=== PATIENT | female | born 1995 | race Caucasian/White ===

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

== ENCOUNTER 2017-05-02 13:02 | Emergency (ER) | END 2017-05-02 17:21 | disposition home or self-care (01) ==

== ENCOUNTER 2017-06-26 16:44 | Emergency (ER) | END 2017-06-26 21:23 | disposition home or self-care (01) ==

== ENCOUNTER 2017-09-12 15:52 | Emergency (ER) | END 2017-09-12 19:48 | disposition home or self-care (01) ==

== ENCOUNTER 2017-11-14 12:45 | Emergency (ER) | END 2017-11-14 15:34 | disposition home or self-care (01) ==

== ENCOUNTER 2018-03-15 17:08 | Emergency (ER) | END 2018-03-15 18:34 | disposition home or self-care (01) ==

== ENCOUNTER 2018-09-09 16:27 | Emergency (ER) | payer OTHER ==
[~2018-09-09] VITALS: Ht 157.5 cm; Wt 76.6 kg
[~2018-09-09 16:27] MED LIST changes: +ACET500C5 PO; +AMOX500C2 PO; -AZIT1PAC12; +BENZ200C68 PO; +CYCL10TA7 PO; +FAMO-96 PO; +FLUT9.9S NASAL; +GUAI-173 PO; +IBUP-1542 PO; +IBUP800T48 PO; +LOPE2CAP PO; +LORA-441 PO; +NAPR-985 PO; +ONDA4TAB14 PO; +ONDA4TAB8 PO; +RANI150T35 PO
[2018-09-09 16:30] VITALS: BP 131/79; PULSE 106; RESP 18; Ht 157.5 cm; Wt 76.6 kg
[2018-09-09] MEDS ORDERED: IBUP-1542 PO (16:52)
[2018-09-09] MEDS ORDERED: D-ME473S2 PO (16:52)
--- NOTE | 2018-09-09 17:06 | ERD ---
ER Documentation Chief Complaint Chief Complaint cough , chest congestion , ear pain x 4 days HPI 22-year-old female presents with cough and congestion for last 4 days. She may have had tactile fevers but no measured temperature. She has body aches as well. She denies vomiting, abdominal pain, diarrhea, urinary complaints. ROS All systems reviewed and are negative except as per history of present illness. Medications Home Meds Active Scripts Dextromethorphan Hb-Promethazine Hcl* (Promethazine DM* Syrup) 473 Ml Syrup, 5 ML PO Q6 PRN for COUGH for 5 Days, ML Prov:RACHEL SAMANIEGO MD 09/09/18 Ibuprofen* (Motrin*) 600 Mg Tab, 600 MG PO Q6, #20 TAB Prov:RACHEL SAMANIEGO MD 09/09/18 Famotidine* (Pepcid*) 20 Mg Tablet, 20 MG PO BID, #20 TAB Prov:SHIRLEY PALMA PA-C 05/21/18 Acetaminophen* (Tylophen*) 500 Mg Capsule, 1 CAP PO Q6H PRN for PAIN AND OR ELEVATED TEMP, #20 CAP Prov:SHIRLEY PALMA PA-C 05/21/18 Ondansetron (Ondansetron Odt) 4 Mg Tab.rapdis, 4 MG PO Q6H PRN for NAUSEA AND/OR VOMITING, #10 TAB Prov:SHIRLEY PALMA PA-C 05/21/18 Ibuprofen* (Motrin*) 600 Mg Tab, 600 MG PO Q6, #30 TAB Prov:DANNY SHARPE PA-C 03/15/18 Benzonatate* (Benzonatate*) 200 Mg Capsule, 200 MG PO TID PRN for COUGH, #15 CAP Prov:DANNY SHARPE PA-C 03/15/18 Loratadine* (Claritin*) 10 Mg Capsule, 10 MG PO DAILY, #20 CAP Prov:DANNY SHARPE PA-C 03/15/18 Fluticasone Propionate (Flonase Allergy Relief) 9.9 Ml [place].susp, 1 SPRAY NASAL BID, #1 BOTTLE TO EACH NOSTRIL Prov:DANNY SHARPE PA-C 03/15/18 Amoxicillin* (Amoxicillin*) 500 Mg Cap, 500 MG PO TID for 10 Days, CAP Prov:DANNY SHARPE PA-C 03/15/18 Cyclobenzaprine Hcl* (Cyclobenzaprine Hcl*) 10 Mg Tablet, 10 MG PO QHS, #7 TAB Prov:CANDY AUSTIN PA-C 11/14/17 Naproxen* (Naprosyn*) 500 Mg Tablet, 500 MG PO BID PRN for PAIN AND/OR INFLAMMATION, #30 TAB Prov:CANDY AUSTIN PA-C 11/14/17 Lorazepam* (Ativan*) 0.5 Mg Tablet, 0.5 MG PO BID PRN for ANXIETY, #7 TAB Prov:RACHEL SAMANIEGO MD 09/12/17 Ibuprofen* (Motrin*) 600 Mg Tab, 600 MG PO Q6, #30 TAB Prov:ABEBA GARLAND 06/26/17 Guaifenesin* (Tussin*) 100 Mg/5 Ml Syrup, 200 MG PO Q6 PRN for COUGH for 3 Days, ML Prov:ABEBA GARLAND 06/26/17 Cephalexin* (Keflex*) 500 Mg Capsule, 500 MG PO BID for 7 Days, CAP Prov:ABEBA GARLAND 06/26/17 Loperamide Hcl* (Imodium*) 2 Mg Capsule, 2 MG PO .AFTER EA LOOSE BM PRN for DIARRHEA, #10 TAB Prov:ABEBA GARLAND 06/26/17 Ondansetron Hcl* (Zofran*) 4 Mg Tablet, 4 MG PO Q6H for NAUSEA AND/OR VOMITING, #30 TAB Prov:ABEBA GARLAND 06/26/17 Ranitidine Hcl* (Zantac*) 150 Mg Tablet, 150 MG PO BID PRN for EPIGASTRIC PAIN, #30 TAB Prov:ADRIANA MILLAN PA-C 05/02/17 Cephalexin* (Keflex*) 500 Mg Capsule, 500 MG PO TID for 7 Days, CAP Prov:ADRIANA MILLAN PA-C 05/02/17 Ibuprofen* (Motrin*) 800 Mg Tab, 800 MG PO Q8 PRN for PAIN AND OR ELEVATED TEMP, #30 TAB Prov:DARON CASTREJON 12/08/16 Cephalexin* (Keflex*) 500 Mg Capsule, 500 MG PO TID for 7 Days, CAP Prov:PASILADARON CLAROS F 12/08/16 Phenazopyridine Hcl* (Pyridium*) 200 Mg Tab, 200 MG PO TID PRN for DYSURIA, #6 TAB Prov:RACHEL SAMANIEGO MD 08/31/15 Cephalexin* (Keflex*) 500 Mg Capsule, 500 MG PO QID for 5 Days, CAP Prov:RACHEL SAMANIEGO MD 08/31/15 Ondansetron Hcl* (Zofran* ODT) 4 mg -ODT Tab.disper, 4 MG PO Q6 PRN for NAUSEA AND/OR VOMITING, #10 TAB Prov:KAILEE HOFF DO 06/26/15 Hydrocodone Bit-Acetaminophen* ([place]uth*) 10-325 Mg Tablet, 1 TAB PO Q6 PRN for PAIN, #20 TAB Prov:GREENJEREMIAHKAILEE DO 06/26/15 Ondansetron Hcl* (Zofran* ODT) 4 mg -ODT Tab.disper, 4 MG PO Q8 PRN for NAUSEA AND OR VOMITING, #10 TAB Prov:YINA MORENO PA-C 05/12/15 Ondansetron Hcl* (Zofran* ODT) 4 mg -ODT Tab.disper, 4 MG PO Q8 PRN for NAUSEA AND/OR VOMITING, #30 TAB Prov:JASVIR JEFFERSON NP 02/01/15 Hydrocodone Bit-Acetaminophen* (Ruth*) 5-325 Mg Tab, 1 TAB PO Q6 PRN for SEVERE PAIN LEVEL 7-10, #10 TAB Prov:JASVIR JEFFERSON NP 02/01/15 Magaldrate/Simethicone* (Mag-Al Plus Suspension*) 30 Ml Oral.susp, 30 ML PO Q6H PRN for GASTROINTESTINAL UPSET, #1 BOTTLE Prov:JASVIR JEFFERSON NP 02/01/15 Nitrofurantoin Monohyd Macrocr* (Macrobid*) 100 Mg Capsr, 100 MG PO BID for 7 Days, CAP Prov:JASVIR JEFFERSON NP 02/01/15 Reported Medications Loratadine* (Claritin*) 10 Mg Capsule, 10 MG PO DAILY, CAP 06/24/15 Allergies Allergies: Coded Allergies: No Known Allergy (Unverified , 11/14/17) PMhx/Soc History of Surgery: Yes (CHOLECYSTECTOMY 06/24/15) Anesthesia Reaction: No Hx Neurological Disorder: No Hx Respiratory Disorders: No Hx Cardiac Disorders: No Hx Psychiatric Problems: No Hx Miscellaneous Medical Probl: No Hx Alcohol Use: No Hx Substance Use: No Hx Tobacco Use: No FmHx Family History: No diabetes, No coronary disease, No other Physical Exam Vitals Vital Signs Date Temp Pulse Resp B/P (MAP) Pulse Ox O2 O2 Flow FiO2 Time Delivery Rate 09/09/18 99.2 106 18 131/79 99 16:30 (96) Physical Exam Const: No acute distress Head: Atraumatic Eyes: Normal Conjunctiva ENT: Normal External Ears, Nose and Mouth. TMs and oropharynx normal. Neck: Full range of motion. No meningismus. Resp: Clear to auscultation bilaterally. Dry cough without rales, wheezing or retractions. Cardio: Regular rate and rhythm, no murmurs Abd: Soft, non tender, non distended. Normal bowel sounds Skin: No petechiae or rashes Back: No midline or flank tenderness Ext: No cyanosis, or edema Neur: Awake and alert Psych: Normal Mood and Affect Procedures/MDM Patient presents with URI symptoms for last 3 days. She has no signs of hypoxemia, respiratory distress, and is well-appearing. She will be discharged home with promethazine DM, ibuprofen, primary care follow-up and return precautions. The patient was stable with no new complaints during the ER course. Clinically, there is no current evidence to suggest meningitis, sepsis, acute abdomen, pneumonia, stroke, acute coronary syndrome, pulmonary embolism, aortic dissection or any other emergent condition appearing to require further evaluation or hospitalization. Patient counseled regarding my diagnostic impression and care plan. Prior to discharge all questions answered. Pt agrees with treatment plan and understands strict return precautions. Pt is instructed to follow up with primary care provider within 24-48 hours. Precautionary instructions provided including instructions to return to the ER if not improving or for any worsening or changing symptoms or concerns. Disclaimer: Inadvertent spelling and grammatical errors are likely due to EHR/dictation software use and do not reflect on the overall quality of patient care. Also, please note that the electronic time recorded on this note does not necessarily reflect the actual time of the patient encounter. Departure Diagnosis: Primary Impression: Upper respiratory infection URI type: unspecified URI Qualified Codes: J06.9 - Acute upper respiratory infection, unspecified Condition: Stable Patient Instructions: Uri, Viral, No Abx (Adult) Additional Instructions: Recheck for new or worsening symptoms with primary care doctor. Likely viral illness should resolve the next 3 to 5 days. RACHEL SAMANIEGO MD September 09, 2018 17:06
== END 2018-09-10 13:15 | disposition home or self-care (01) ==
LOC: E/R 16:27
DX: J06.9 Acute upper respiratory infection, unspecified (principal)
CPT/HCPCS: 99283